=== PATIENT | female | born 1975 | race Hispanic/Latino ===

== ENCOUNTER 2017-10-18 00:57 | Emergency (ER) | payer MEDICAID, OTHER, SELFPAY ==
[2017-10-18] MEDS ORDERED: IPRATROPIUM/ALBUTEROL SULFATE 3 ML SOLUTION IH ONE (01:46)
[2017-10-18 02:00] LABS: BASOPHILS % (AUTO) 0.4 % (0.0-5.0); EOSINOPHILS % (AUTO) 0.2 % (0.0-8.0); HEMATOCRIT 38.4 % (36-48); LYMPHOCYTES % (AUTO) 14.2 % (21.0-51.0); MEAN CORPUSCULAR HEMOGLOBIN 30.6 pg (27.0-33.0); MEAN CORPUSCULAR HGB CONC 34.5 g/dL (32.0-36.0); MEAN CORPUSCULAR VOLUME 88.7 fL (79-99); MONOCYTES % (AUTO) 10.8 % (3.0-13.0); NEUTROPHILS % (AUTO) 74.4 % (40.0-77.0); NUCLEATED RED BLOOD CELLS 0.1 % (0.0-0.19); PLATELET COUNT (AUTO) 199 K/uL (130-400); RED BLOOD CELL COUNT(AUTO) 4.33 MIL/uL (4.00-5.50); RED CELL DISTRIBUTION WIDTH 13.2 % (11.0-15.5)
[2017-10-18 02:09] LABS: CREATININE 0.6 mg/dL (0.5-1.5); POTASSIUM 3.4 mmol/L (3.5-5.1)
[2017-10-18 02:13] LABS: ALBUMIN 3.3 g/dL (3.5-5.0); BILIRUBIN,TOTAL 0.3 mg/dL (0.2-1.0); TOTAL PROTEIN, SERUM 7.4 g/dL (6.0-8.3)
== END 2017-10-18 03:02 | disposition home or self-care (01) ==
LOC: EDH 00:57
DX: J10.1 Influenza due to other identified influenza virus with other respiratory manifestations (principal); J45.909 Unspecified asthma, uncomplicated; I10 Essential (primary) hypertension; Z98.890 Other specified postprocedural states
CPT/HCPCS: 36415; 71045; 80053; 81025; 85025; 87804; 94640

== ENCOUNTER 2024-11-05 12:51 | Emergency (ER) | payer BC, SELFPAY ==
[~2024-11-05] VITALS: Ht 162.6 cm; Wt 80.7 kg
--- NOTE | 2024-11-05 13:19 | ERN ---
ED Note History of Present Illness Stated Complaint: BACK PAIN Chief Complaint: Back Pain or Injury Time Seen by MD: 12:54 Dictation: PATIENT IS A 49-YEAR-OLD FEMALE COMING IN TODAY WITH A PAINFUL ELECTRIC TYPE OF PAIN RASH TO HER RIGHT POSTERIOR SHOULDER SHE HAS HAD FOR ONE WEEK. STATES IT RADIATES AROUND TO HER CHEST. NO SOB NO FEVER NO CHILLS. NO PRIMARY CARE DOCTOR. IN TRIAGE [facility] RN WAS AT BEDSIDE, PATIENT HAS A VESICULAR RASH TO HER POSTERIOR SHOULDER THAT RADIATES AROUND THE CHEST IN A LINEAR MANNER Allergies: Coded Allergies: No Known Allergies (Unverified Allergy, Unknown, 11/05/24) Home Meds Active Scripts Prednisone (Prednisone) 20 Mg Tablet, 1 TAB PO AD for 6 Days, #14 TAB 0 Refills TAKE 1 TAB BY MOUTH THREE TIMES PER DAY X3 DAYS, THEN TAKE 1 TAB BY MOUTH TWICE A DAY X2 DAYS, THEN TAKE 1 TAB BY MOUTH ONCE A DAY X1 DAY. Take with food Prov:JOSE FERREIRA NP 11/05/24 Famciclovir (Famciclovir) 500 Mg Tablet, 500 MG PO TID for 7 Days, #21 TAB Prov:JOSE FERREIRA NP 11/05/24 Ibuprofen (Ibuprofen 800 mg Tab) 800 Mg Tab, 800 MG PO Q8H PRN for fever or pain, #30 TAB 0 Refills Prov:JOSE FERREIRA NP 11/05/24 Past Medical History History: Not Applicable RN Note Reviewed/Agreed w/PFSH: Yes Review of System Dictation CONSTITUTIONAL: NEGATIVE EXCEPT FOR HPI HEAD/FACE: NEGATIVE EXCEPT FOR HPI EENT: NEGATIVE EXCEPT FOR HPI RESPIRATORY: NEGATIVE EXCEPT FOR HPI GASTROINTESTINAL/ABDOMINAL: NEGATIVE EXCEPT FOR HPI GENITOURINARY: NEGATIVE EXCEPT FOR HPI MUSCULOSKELETAL: NEGATIVE EXCEPT FOR HPI INTEGUMENTARY: NEGATIVE EXCEPT FOR HPI PAINFUL RASH TO POSTERIOR RIGHT SHOULDER NEUROLOGICAL/PSYCH: NEGATIVE EXCEPT FOR HPI HEMATOLOGIC/LYMPHATIC: NEGATIVE EXCEPT FOR HPI ALL SYSTEMS NEGATIVE, EXCEPT NOTED ABOVE. 13 POINT REVIEW OF SYSTEMS ASSESSED AND ALL NEGATIVE EXCEPT FOR ABOVE. Initial Vital Sign VS Vital Signs Date Time Temp Pulse Resp B/P (MAP) Pulse Ox O2 Delivery O2 Flow Rate FiO2 11/05/24 13:15 97.9 73 16 173/92 100 Room Air 0 11/05/24 14:45 21 Physical Exam Dictation VITAL SIGNS REVIEWED GENERAL APPEARANCE: ALERT, ORIENTED X 3, MODERATE ACUTE DISTRESS, WELL DEVELOPED, NOURISHED. HEAD AND FACE: NON-TRAUMATIC. EYES: PERRL, PINK CONJUNCTIVAS, EYELID NO TRAUMA, ANTERIOR CHAMBER WITH ARCUS SENILIS. EARS: PINNAS INTACT AND NO SIGNS OF TRAUMA OR ERYTHEMA EAR CANALS CLEAR AND NO DISCHARGE TM NO ERYTHEMA NOSE: NO DISCHARGE, NO BLEEDING. OROPHARYNX: MOUTH NORMAL, TONGUE PINK, PHARYNX CLEAR,NO ERYTHEMA, TONSILS NO EXUDATES, NO ABSCESSES NOTED, MUCOUS MEMBRANE MOIST NECK: SUPPLE, NON-TENDER, NO THYROMEGALY, NO MASSES, NO JVD, NO BRUITS BREAST:DEFERRED CHEST:NO TENDERNESS, NO CREPITUS, NO PARADOXICAL MOVEMENT, NO RETRACTIONS LUNGS:CLEAR, WELL-VENTILATED, SYMMETRIC, NO RALES, NO WHEEZING, NO RHONCHI, NO STRIDOR, GOOD BREATH SOUNDS BILATERALLY HEART: REGULAR RATE, REGULAR RHYTHM, NO MURMUR, NO GALLOPS VASCULAR: NO PERIPHERAL EDEMA, ABDOMEN: SOFT, POSITIVE BOWEL SOUNDS, NONDISTENDED, NO GUARDING, NONTENDER, NO REBOUND, NO MASSES NO HEPATOMEGALY, NO SPLENOMEGALY, NO SHORT'S SIGN, NO HERNIAS. RECTAL: DEFERRED GENITAL: DEFERRED NEUROLOGICAL: NORMAL SPEECH, MOTOR FUNCTION INTACT, SENSORY FUNCTION INTACT MUSCULOSKELETAL: NECK NONTENDER, FULL RANGE OF MOTION, BACK NONTENDER, FULL RANGE OF MOTION, EXTREMITIES: NONTENDER, FULL RANGE OF MOTION SKIN: COLOR PINK, DR VESICULAR RASH TO RIGHT POSTERIOR SHOULDER THAT RADIATES AROUND A DERMATOME FASHION TO THE RIGHT ANTERIOR CHEST DOES NOT CROSS MIDLINE. LYMPHATIC: DEFERRED Results (Laboratory/Radiology) Labs Reviewed?: Yes ED Course ED Course Vital Signs Date Time Temp Pulse Resp B/P (MAP) Pulse Ox O2 Delivery O2 Flow Rate FiO2 11/05/24 14:45 97.9 72 18 155/87 99 Room Air* 0 21 11/05/24 13:15 97.9 73 16 173/92 100 Room Air 0 1425/no labs or imaging indicated patient will be treated empirically for shingles and neuropathy Medical Decision Making MDM Medical discharge making based on empiric shingles treatment. Discharged home with prednisone/famciclovir/ibuprofen Given information on oatmeal bath/soaks Follow up with her primary care DX & DISP Disposition: Discharge Departure Impression: Primary Impression: Shingles Condition: Stable Scripts Prednisone (Prednisone) 20 Mg Tablet 1 TAB PO AD for 6 Days, #14 TAB 0 Refills TAKE 1 TAB BY MOUTH THREE TIMES PER DAY X3 DAYS, THEN TAKE 1 TAB BY MOUTH TWICE A DAY X2 DAYS, THEN TAKE 1 TAB BY MOUTH ONCE A DAY X1 DAY. Take with food Prov: JOSE FERREIRA NP 11/05/24 Famciclovir (Famciclovir) 500 Mg Tablet 500 MG PO TID for 7 Days, #21 TAB Prov: JOSE FERREIRA NP 11/05/24 Ibuprofen (Ibuprofen 800 mg Tab) 800 Mg Tab 800 MG PO Q8H PRN for fever or pain, #30 TAB 0 Refills Prov: JOSE FERREIRA NP 11/05/24 Additional Instructions: Follow-up with primary care provider in 1 to 2 days. Take medications as directed here in the emergency room. Okay to continue home medications unless otherwise discussed during your visit in the emergency room today. Return to your nearest emergency room if symptoms worsen or if there is no improvement. Call 911 if you need immediate assistance. Take Tylenol or Motrin [id number] as needed and if no contraindications are present. Increase oral hydration. A wound culture or urine culture was ordered here in the emergency room department please follow-up with primary care provider and advise them to get repeat ports from our facility. If you had any Solomon wrap/splints that were applied here, please do not remove them until you see your primary care or specialty. Take medications as directed until gone. Suggest [place] oatmeal bath/soaks2 times a day for the next five days until rashes crusted over. Follow up with your primary care doctor in the next 1-2 days. Keep rash covered until crusted over Referrals: SELF,REFERRAL (PCP) Time of Disposition: 14:28 I have reviewed the case, and I agree with, Diagnosis and Plan I performed the substantive portion of the visit. I have reviewed and personally made and approve the management plan that is documented in the notes by myself or the ELIU. I acknowledge full responsibility for the patient's management plan. JOSE FERREIRA NP Nov 05, 2024 13:19 ANNABELLA MTZ MD Nov 05, 2024 18:35
[2024-11-05] MEDS ORDERED: FAMC500T8 PO (14:29)
[2024-11-05] MEDS ORDERED: IBUP-2077 PO (14:29)
[2024-11-05] MEDS ORDERED: PRED20TA3 PO (14:29)
[2024-11-05 14:45] VITALS: BP 155/87; PULSE 72; RESP 18; TEMP 97.9; O2SAT 99
== END 2024-11-05 14:46 | disposition home or self-care (01) ==
LOC: EDH 12:51
DX: B02.9 Zoster without complications (principal); Z79.624 Long term (current) use of inhibitors of nucleotide synthesis
CPT/HCPCS: 99281; 99283

== ENCOUNTER 2025-04-21 19:56 | Emergency (ER) | payer BC ==
[~2025-04-21] VITALS: Ht 162.6 cm; Wt 74.8 kg
[~2025-04-21 19:56] MED LIST: FAMC500T8 PO; IBUP-2077 PO; PRED20TA3 PO
--- NOTE | 2025-04-21 19:59 | NUR ---
UA CUP PROVIDED
--- NOTE | 2025-04-21 20:41 | NUR ---
UA COLLECTED AND SENT
[2025-04-21 20:58] LABS: APPEARANCE,URINE CLEAR (CLEAR); GLUCOSE, URINE (UA) NEGATIVE (NEGATIVE); LEUKOCYTE ESTERASE ,URINE NEGATIVE Leu/uL (NEGATIVE); NITRATE,URINE NEGATIVE (NEGATIVE); OCCULT BLOOD,URINE NEGATIVE (NEGATIVE)
[2025-04-21 21:00] LABS: ADD UA MICROSCOPIC NO
[2025-04-21 21:02] LABS: HCG,QUALITATIVE URINE NEGATIVE (NEGATIVE)
--- NOTE | 2025-04-21 21:06 | ERN ---
ED Note History of Present Illness Stated Complaint: FLANK PAIN Chief Complaint: Rib Pain Time Seen by MD: 20:32 Time Seen by Midlevel: 20:33 Dictation: 49-year-old female presents to the emergency department due to reported having pain to the left anterior portion of the ribcage area for the past 2 months. She states that the pain is primarily when she takes a deep breath or when she presses in the affected area. However, she states that upon twisting she also feels the same pain. Currently, she denies having any chest pain, chest pressure or shortness of breath associated with this. Patient states that the she does not know whether or not this might have been related to having picked up and heavy object at work. Upon initial evaluation, the patient presents in no acute respiratory distress. 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 Take with food Prov:JOSE FERREIRA NP 11/05/24 Famciclovir (Famciclovir) 500 Mg Tablet, 500 MG PO TID for 7 Days, #21 TAB Prov:JOSE FERREIRA NP 11/05/24 Ibuprofen (Ibuprofen 800 mg Tab) 800 Mg Tab, 800 MG PO Q8H PRN for fever or pain, #30 TAB 0 Refills Prov:JOSE FERREIRA NP 11/05/24 Past Medical History Past Medical History: Sinusitis, Other Additional Past Medical Hx: UNKNOWN LIVER ISSUES Surgical History: History: Not Applicable RN Note Reviewed/Agreed w/PFSH: Yes Review of System Dictation MS/Extremity: Left ribcage pain Initial Vital Sign VS Vital Signs Date Time Temp Pulse Resp B/P (MAP) Pulse Ox O2 Delivery O2 Flow Rate FiO2 04/21/25 19:58 97.9 77 20 127/84 100 Room Air 04/21/25 21:30 0 21 Physical Exam Dictation General: awake, alert, NAD Head/Face: Normocephalic, atraumatic Eyes: PERRL, EOMI ENT: Oral mucosa moist Neck: Trachea midline, supple Cardiovascular: RRR, no edema Chest: Anterior lateral ribcage tenderness that is 100% reproducible with palpation and twisting of the torso. Respiratory: Symmetrical, non-labored Abdomen: Soft, non-tender, non-distended, no guarding. Skin: Warm, dry, good turgor, no rash MS/Extremity: Pulses equal, no cyanosis, neurovascular intact, FROM Neuro: COAx4, GCS 15, steady gait, Psych: Normal behavior, mood, and affect normal Results (Laboratory/Radiology) Laboratory/Radiology Laboratory Tests Test 04/21/25 20:41 Urine Color LIGHT-YELLOW (YELLOW) Urine Appearance CLEAR (CLEAR) Urine pH 5.5 (5.0-8.0) Urine Specific [place] 1.025 (1.001-1.031) Urine Protein NEGATIVE mg/dL (NEGATIVE) Urine Glucose (UA) NEGATIVE mg/dL (NEGATIVE) Urine Ketones NEGATIVE mg/dL (NEGATIVE) Urine Occult Blood NEGATIVE (NEGATIVE) Urine Nitrate NEGATIVE (NEGATIVE) Urine Bilirubin NEGATIVE mg/dL (NEGATIVE) Urine Urobilinogen 0.2 mg/dL (0.2-1.0) Urine Leukocyte Esterase NEGATIVE Vickie/uL Urine HCG, Qualitative NEGATIVE (NEGATIVE) X-RAY Comment: Left rib series x-ray with no cortical anomalies/deformities or pneumothorax as interpreted by me. ED Course ED Course Orders Procedure Category Date Status Time Urinalysis Profile LAB 04/21/25 Complete 20:50 ,Urine Test LAB 04/21/25 Complete 20:50 Ribs Uni Lt W Pa RAD 04/21/25 Taken Chest 3+Vws 21:03 Ketorolac 60mg/2ml PHA 04/21/25 Complete (Toradol 60mg/2ml) 21:30 Lidocaine (Lidoderm PHA 04/21/25 Complete Patch 5%) 21:30 Current Medications Medications (Trade) Dose Ordered Sig/Audie Route PRN Reason Start Time Stop Time Status Last Admin Dose Admin Ketorolac Tromethamine (toRADol 60MG/ 2ML) 60 mg ONCE ONCE IM 04/21/25 21:30 04/21/25 21:31 DC 04/21/25 21:28 Lidocaine (Lidoderm Patch 5%) 1 patch ONCE ONCE TP 04/21/25 21:30 04/21/25 21:31 DC 04/21/25 21:28 Vital Signs Date Time Temp Pulse Resp B/P (MAP) Pulse Ox O2 Delivery O2 Flow Rate FiO2 04/21/25 21:30 98.1 67 18 135/75 98 Room Air* 0 21 04/21/25 19:58 97.9 77 20 127/84 100 Room Air Medical Decision Making MDM MDM: Differential diagnosis: Rib fracture, chest wall strain, chest wall sprain, pneumothorax. Rationale: Tests considered and ordered secondary to shared decision making include: Previous outside records reviewed: Old ER visits. Risk of complication and/or morbidity or mortality of patient management: None Medications-Per medication reconciliation Need for hospitalization: Patient does not meet criteria for hospitalization. Need for emergency major/minor surgery: No There are no social concerns with this patient. Prescription drug management Prescriptions will include symptomatic care Patient's prior external medical records from other ER visits were reviewed by me as indicated. Prior testing and results from previous visits were reviewed. Prior tests were taken into account with medical decision making and resource utilization, independent historian/historians were used to obtain complete medical history. I independently interpreted the test that were performed, results were reviewed by me and considered findings on radiology if ordered. Medical management and examination interpretation discussions were had by me with other qualified healthcare professionals as indicated for the patient's care. DX & DISP Disposition: Discharge Departure Impression: Primary Impression: Strain of chest wall Condition: Stable Referrals: SELF,REFERRAL (PCP) Time of Disposition: 23:22 HUYEN PACHECO Apr 21, 2025 21:06
[2025-04-21] MEDS: LIDOCAINE 5% TOPICAL PATCH TP ONE (21:28)
--- NOTE | 2025-04-21 23:28 | HMCIMG ---
EXAM: CR left Rib, 3 Views. CLINICAL HISTORY: Pain COMPARISON: None provided. FINDINGS: LUNGS: The visualized lungs appear essentially clear. PLEURAL SPACES: No pneumothorax evident. No pleural effusions. BONES: No visible acute rib fracture. IMPRESSION: No visible acute rib fracture. No pneumothorax. /[place]
[2025-04-21 23:32] VITALS: BP 132/72; PULSE 62; RESP 18; TEMP 98.2; O2SAT 100
== END 2025-04-21 23:34 | disposition home or self-care (01) ==
LOC: EDH 19:56
DX: S29.011A Strain of muscle and tendon of front wall of thorax, initial encounter (principal); Z79.624 Long term (current) use of inhibitors of nucleotide synthesis; Z98.890 Other specified postprocedural states; X58.XXXA Exposure to other specified factors, initial encounter; Y93.89 Activity, other specified; Y92.89 Other specified places as the place of occurrence of the external cause; Y99.8 Other external cause status
CPT/HCPCS: 99284; 81003; 81025; 71101; 96372; J1885